=== PATIENT | male | born 1955 | race Hispanic/Latino ===

== ENCOUNTER 2023-07-08 12:50 | Inpatient (IN) | payer MEDICAID, SELFPAY ==
[2023-07-08] MEDS ORDERED: Aspirin Chewable 81 MG TAB ONE (13:24)
[2023-07-08 13:48] LABS: #Eosinphils 0.2 thou/uL (0.0-0.7); #Neutrophils 8.6 thou/uL (1.40-6.50); %Basophils 0.2 % (0.0-1.0); %Eosinophils 1.6 % (0.0-10.0); %Lymphocytes 13.3 % (21.0-51.0); %Monocytes 8.9 % (0.0-10.0); %Neutrophils 75.6 % (42.0-75.0); Hematocrit 37.7 % (42.0-52.0); Hemoglobin 13.1 g/dL (14.0-18.0); Mean Corpuscular HGB CONC 34.7 g/dL (32.0-36.0); Mean Corpuscular Hemoglobin 33.1 pg (27.0-31.0); Mean Corpuscular Volume 95.2 fl (78.0-98.0); Mean Platelet Volume 9.2 fL (7.4-10.4); Platelet Count 503 10x3/uL (130-400); RBC Distribution Width 12.4 % (11.5-14.5); Red Blood Cell (RBC) Count 3.96 mill/uL (4.70-6.10); White Blood Cell (WBC) Count 11.3 10x3/uL (4.8-10.8)
[2023-07-08] MEDS ORDERED: Nitroglycerin 2% Ointment 1 INCH/1 GM Packet ONE (14:00)
[2023-07-08 14:09] LABS: Prothrombin Time 13.9 sec (12.0-14.7)
[2023-07-08 14:10] LABS: PTT 35.5 sec (22.9-36.1)
[2023-07-08 14:26] LABS: ALT (SGPT) 18 U/L (8-55); AST (SGOT) 25 U/L (5-34); Albumin 3.7 g/dL (3.4-4.8); Alkaline Phosphatase 82 U/L (40-110); Anion Gap 14 mmol/L (10-20); BUN (Urea Nitrogen) 7 mg/dL (8.4-25.7); Bilirubin, Total 0.2 mg/dL (0.2-1.2); Calc. Creatinine Clearance 0 mL/min (70-130); Calcium 8.9 mg/dL (7.8-10.44); Carbon Dioxide 29 mmol/L (23-31); Chloride 99 mmol/L (98-107); Estimated GFR 99; Globulin 3.1 g/dL (2.4-3.5); Glucose 90 mg/dL (80-115); Lipase 35 U/L (8-78); Potassium 3.9 mmol/L (3.5-5.1); Protein, Total 6.8 g/dL (5.8-8.1); Sodium 138 mmol/L (136-145)
[2023-07-08] MEDS ORDERED: methylPREDNISolone Sod Succ/PF 125 MG/2 ML VIAL ONE (14:46)
[2023-07-08] MEDS ORDERED: Acetaminophen 325 MG TAB PO PRN (15:20)
[2023-07-08] MEDS ORDERED: Nitroglycerin 0.4 MG TAB (25 Tab Bottle) SL PRN (15:20)
[2023-07-08] MEDS ORDERED: Ondansetron ODT 4 MG TAB PO PRN (15:20)
[2023-07-08] MEDS ORDERED: Furosemide 20 MG/2 ML VIAL SLOW IVP SCH ×2 (15:30→23:15)
[2023-07-08 15:59] LABS: Magnesium 2.1 mg/dL (1.6-2.6)
[2023-07-08] MEDS ORDERED: cefTRIAXone\\ROCEPHIN 1 GM in Sodium Chloride 0.9% 100 ML IVPB SCH (16:00)
[2023-07-08 17:24] LABS: Troponin I Less than 0.010 ng/mL (< 0.028)
[2023-07-08 21:19] LABS: Troponin I Less than 0.010 ng/mL (< 0.028)
[2023-07-08 21:42] VITALS: BMI 20.2
[2023-07-08] MEDS: Metoprolol Tartrate 25 MG TAB PO SCH (22:46)
[2023-07-08] MEDS: cefTRIAXone\\ROCEPHIN 1 GM in Sodium Chloride 0.9% 100 ML IVPB SCH (23:26)
[2023-07-08] MEDS: Nitroglycerin 2% Ointment 1 INCH/1 GM Packet TOP SCH (23:27)
[2023-07-08] MEDS: Famotidine 20 MG TAB PO SCH (23:37)
[2023-07-09 05:02] LABS: #Monocytes 0.3 thou/uL (0.11-0.59); #Neutrophils 5.6 thou/uL (1.40-6.50); %Basophils 0.1 % (0.0-1.0); %Lymphocytes 12.1 % (21.0-51.0); %Monocytes 3.7 % (0.0-10.0); %Neutrophils 83.7 % (42.0-75.0); Hematocrit 36.9 % (42.0-52.0); Hemoglobin 12.7 g/dL (14.0-18.0); Mean Corpuscular HGB CONC 34.4 g/dL (32.0-36.0); Mean Corpuscular Hemoglobin 32.5 pg (27.0-31.0); Mean Corpuscular Volume 94.4 fl (78.0-98.0); Mean Platelet Volume 9.5 fL (7.4-10.4); Platelet Count 534 10x3/uL (130-400); RBC Distribution Width 12.4 % (11.5-14.5); Red Blood Cell (RBC) Count 3.91 mill/uL (4.70-6.10); White Blood Cell (WBC) Count 6.7 10x3/uL (4.8-10.8)
[2023-07-09] MEDS: Nitroglycerin 2% Ointment 1 INCH/1 GM Packet TOP SCH ×3 (06:20→22:45)
[2023-07-09] MEDS ORDERED: ADENOSINE 60 MG/20 ML SDV ONE (08:05)
[2023-07-09] MEDS: Metoprolol Tartrate 25 MG TAB PO SCH ×2 (11:54→20:49)
[2023-07-09] MEDS: Famotidine 20 MG TAB PO SCH ×2 (11:54→20:48)
[2023-07-09] MEDS: Aspirin Chewable 81 MG TAB PO SCH (11:54)
[2023-07-09] MEDS: methylPREDNISolone Sod Succ 40 MG VIAL IVP SCH (11:55)
[2023-07-09 13:13] LABS: SARS-CoV-2 NAA Rapid Test Not Detected (NotDetected)
[2023-07-09] MEDS ORDERED: Ipratropium/Albuterol 3 ML NEB NEB PRN (14:51)
[2023-07-09] MEDS: Ipratropium/Albuterol 3 ML NEB NEB SCH (18:25)
[2023-07-09] MEDS: Lisinopril 5 MG TAB PO SCH (20:48)
[2023-07-09] MEDS: Atorvastatin Calcium 40 MG TAB PO SCH (20:48)
[2023-07-09] MEDS: cefTRIAXone\\ROCEPHIN 1 GM in Sodium Chloride 0.9% 100 ML IVPB SCH (22:44)
[2023-07-10] MEDS: Ipratropium/Albuterol 3 ML NEB NEB SCH ×4 (01:33→18:46)
[2023-07-10] MEDS: Nitroglycerin 2% Ointment 1 INCH/1 GM Packet TOP SCH ×3 (06:07→21:34)
[2023-07-10 06:28] LABS: #Monocytes 0.9 thou/uL (0.11-0.59); #Neutrophils 6.4 thou/uL (1.40-6.50); %Basophils 0.1 % (0.0-1.0); %Eosinophils 0.1 % (0.0-10.0); %Lymphocytes 23.8 % (21.0-51.0); %Monocytes 8.8 % (0.0-10.0); %Neutrophils 66.8 % (42.0-75.0); Hematocrit 35.8 % (42.0-52.0); Hemoglobin 12.3 g/dL (14.0-18.0); Mean Corpuscular HGB CONC 34.4 g/dL (32.0-36.0); Mean Corpuscular Hemoglobin 32.5 pg (27.0-31.0); Mean Corpuscular Volume 94.5 fl (78.0-98.0); Mean Platelet Volume 9.1 fL (7.4-10.4); Platelet Count 511 10x3/uL (130-400); RBC Distribution Width 12.5 % (11.5-14.5); Red Blood Cell (RBC) Count 3.79 mill/uL (4.70-6.10); White Blood Cell (WBC) Count 9.6 10x3/uL (4.8-10.8)
[2023-07-10 07:13] LABS: ALT (SGPT) 18 U/L (8-55); AST (SGOT) 21 U/L (5-34); Albumin 3.5 g/dL (3.4-4.8); Alkaline Phosphatase 67 U/L (40-110); Anion Gap 10 mmol/L (10-20); BUN (Urea Nitrogen) 15 mg/dL (8.4-25.7); Bilirubin, Direct 0.1 mg/dL (0.1-0.3); Bilirubin, Total 0.2 mg/dL (0.2-1.2); Calc. Creatinine Clearance 62 mL/min (70-130); Calcium 9.1 mg/dL (7.8-10.44); Carbon Dioxide 29 mmol/L (23-31); Chloride 101 mmol/L (98-107); Estimated GFR 99; Glucose 93 mg/dL (80-115); Magnesium 2.1 mg/dL (1.6-2.6); Potassium 3.2 mmol/L (3.5-5.1); Sodium 137 mmol/L (136-145)
[2023-07-10] MEDS ORDERED: Electrolyte Replacement Protocol 1 EACH FS SCH (07:30)
[2023-07-10] MEDS: Mometasone/Formoterol 200/5 60 PUFF INH SCH ×2 (07:45→18:49)
[2023-07-10] MEDS ORDERED: Potassium Chloride 20 MEQ TAB PO SCH (08:00)
[2023-07-10] MEDS: Aspirin Chewable 81 MG TAB PO SCH (08:36)
[2023-07-10] MEDS: methylPREDNISolone Sod Succ 40 MG VIAL IVP SCH (08:36)
[2023-07-10] MEDS: Famotidine 20 MG TAB PO SCH ×2 (08:36→21:32)
[2023-07-10] MEDS: Metoprolol Tartrate 25 MG TAB PO SCH ×2 (08:37→21:31)
[2023-07-10] MEDS: Lisinopril 5 MG TAB PO SCH ×2 (08:37→21:33)
[2023-07-10] MEDS ORDERED: Iopamidol 370 76% 100 ML VIAL ONE (09:12)
[2023-07-10] MEDS ORDERED: Azithromycin 250 MG TAB PO SCH (14:45)
[2023-07-10 18:03] LABS: Legionella Urinary Ag Negative (Negative); Strep pneumo Urine Ag NEGATIVE (NEGATIVE)
[2023-07-10] MEDS: Cefdinir 300 MG CAP PO SCH (21:32)
[2023-07-10] MEDS: Atorvastatin Calcium 40 MG TAB PO SCH (21:32)
[2023-07-11] MEDS: Ipratropium/Albuterol 3 ML NEB NEB SCH ×3 (01:17→13:22)
[2023-07-11 05:32] LABS: #Monocytes 0.9 thou/uL (0.11-0.59); #Neutrophils 5.7 thou/uL (1.40-6.50); %Basophils 0.1 % (0.0-1.0); %Eosinophils 0.2 % (0.0-10.0); %Lymphocytes 28.5 % (21.0-51.0); %Monocytes 9.5 % (0.0-10.0); %Neutrophils 61.4 % (42.0-75.0); Hematocrit 35.6 % (42.0-52.0); Hemoglobin 12.3 g/dL (14.0-18.0); Mean Corpuscular HGB CONC 34.6 g/dL (32.0-36.0); Mean Corpuscular Volume 95.4 fl (78.0-98.0); Mean Platelet Volume 9.1 fL (7.4-10.4); Platelet Count 499 10x3/uL (130-400); RBC Distribution Width 12.5 % (11.5-14.5); Red Blood Cell (RBC) Count 3.73 mill/uL (4.70-6.10); White Blood Cell (WBC) Count 9.3 10x3/uL (4.8-10.8)
[2023-07-11 06:04] LABS: Anion Gap 14 mmol/L (10-20); BUN (Urea Nitrogen) 11 mg/dL (8.4-25.7); Calc. Creatinine Clearance 60 mL/min (70-130); Calcium 8.6 mg/dL (7.8-10.44); Carbon Dioxide 26 mmol/L (23-31); Chloride 101 mmol/L (98-107); Estimated GFR 98; Glucose 85 mg/dL (80-115); Magnesium 2.1 mg/dL (1.6-2.6); Potassium 3.5 mmol/L (3.5-5.1); Sodium 137 mmol/L (136-145)
[2023-07-11] MEDS: Nitroglycerin 2% Ointment 1 INCH/1 GM Packet TOP SCH ×2 (06:12→14:14)
[2023-07-11] MEDS: Mometasone/Formoterol 200/5 60 PUFF INH SCH (07:16)
[2023-07-11] MEDS: Famotidine 20 MG TAB PO SCH (08:07)
[2023-07-11] MEDS: Cefdinir 300 MG CAP PO SCH (08:07)
[2023-07-11] MEDS: Aspirin Chewable 81 MG TAB PO SCH (08:07)
[2023-07-11] MEDS: methylPREDNISolone Sod Succ 40 MG VIAL IVP SCH (08:07)
[2023-07-11] MEDS: Lisinopril 5 MG TAB PO SCH (08:07)
[2023-07-11] MEDS: Metoprolol Tartrate 25 MG TAB PO SCH (08:10)
[2023-07-11] MEDS ORDERED: FLU VACC QS2023(65UP)/MF59C/PF 60 MCG/0.5 ML SYRINGE IM ONE (09:00)
[2023-07-11] MEDS ORDERED: Azithromycin 250 MG TAB PO SCH (09:00)
[2023-07-11] MEDS ORDERED: Potassium Chloride 20 MEQ TAB PO SCH (13:15)
[2023-07-11 15:45] VITALS: BP 132/72; TEMP 98.7
== END 2023-07-11 18:06 | disposition home or self-care (01) | DRG 291 ==
LOC: ERS 12:50 → ERHOLD 15:15 → 2NO 21:00 → OBSVTOIN 07-09 14:57
PROVIDERS: ADMIT Internal Medicine; ATTEND Family Medicine
DX: I11.0 Hypertensive heart disease with heart failure (principal); J18.9 Pneumonia, unspecified organism; J44.1 Chronic obstructive pulmonary disease with (acute) exacerbation; R07.89 Other chest pain; I42.9 Cardiomyopathy, unspecified; I50.20 Unspecified systolic (congestive) heart failure; I45.10 Unspecified right bundle-branch block; F10.90 Alcohol use, unspecified, uncomplicated; R94.31 Abnormal electrocardiogram [ECG] [EKG]; Z11.52 Encounter for screening for COVID-19; Z87.891 Personal history of nicotine dependence
CPT/HCPCS: 36415; 70470; 71045; 71260; 74177; 74230; 78452; 80048; 80053; 80076; 83690; 83735; 83880; 84484; 85025; 85610; 85730; 87449; 87899; 93005; 93017; 93306; 93798; 94640; 94760; 96365; 96372; 96374; 96375; A9502; G0378; J0153; J0696; J1650; J1940; J2920; J2930; J3490; J7620; Q9967